=== PATIENT | female | born 1965 | race Caucasian/White ===

== ENCOUNTER 2018-06-19 11:10 | Inpatient (IN) ==
[2018-06-19] MEDS ORDERED: FUROSEMIDE 40 MG/4 ML VIAL IV ONE (12:59)
[2018-06-19 13:00] LABS: Basophils % 0.2 % (0.0-0.8); Eosinophils # 0.2 10*3/uL (0.0-0.87); Eosinophils % 2.1 % (0.00-10.9); Hematocrit 44.9 VOL% (35.7-47.0); Hemoglobin 14.3 GM/DL (12.0-16.0); Immature Granulocytes % 0.3 %; Immature Granulocytes Absolute 0.03 #; Lymphocytes % 20.4 % (21.3-54.2); Mean Corpuscular HGB Conc 31.8 GM/DL (32-36); Mean Corpuscular Hemoglobin 32 PG (27-34); Mean Corpuscular Volume 99.1 FL (87-102); Mean Platelet Volume 11.3 FL (9.6-12.0); Monocytes # 0.9 10*3/uL (0.11-0.8); Monocytes % 9.8 % (1.7-12.7); Neutrophils # 6.4 10*3/uL (1.4-7.4); Neutrophils % 67.2 % (38.7-73.9); Platelet Count 281 T/CUMM (130-400); Red Blood Count 4.53 MC/CUMM (3.8-5.5); Red Cell Distribution Width 17.1 % (9.3-17.3); White Blood Count 9.6 T/CUMM (4-12)
[2018-06-19 13:27] LABS: INR 1.5; PT Patient Result 15.3 SECS
[2018-06-19] MEDS: SODIUM CHLORIDE 0.9% 1,000 ML IV SCH (13:30)
[2018-06-19 13:33] LABS: Albumin 2.6 G/DL (3.4-5.0); Bilirubin,Total 0.9 MG/DL (0.2-1.0); Calcium 8.2 MG/DL (8.5-10.1); Osmolality,Calculated 281.8 MOS/KG (273-304); Potassium 4.7 MMOL/L (3.5-5.1); Total Protein 6.8 G/DL (6.4-8.3)
[2018-06-19] MEDS ORDERED: CHLORHEXIDINE 4% SOLN 118 ML BOTTLE TOP SCH (15:00)
[2018-06-19] MEDS: FUROSEMIDE 40 MG/4 ML VIAL IV SCH (16:25)
[2018-06-19] MEDS: CHLORHEXIDINE 0.12% ORAL RINSE 60 ML BOTTLE SWISH/SPIT SCH (21:24)
[2018-06-19] MEDS: METOPROLOL TARTRATE 25 MG TABLET PO SCH (21:24)
[2018-06-20 02:57] LABS: Basophils % 0.4 % (0.0-0.8); Eosinophils # 0.3 10*3/uL (0.0-0.87); Eosinophils % 2.8 % (0.00-10.9); Hematocrit 43.4 VOL% (35.7-47.0); Hemoglobin 14.4 GM/DL (12.0-16.0); Immature Granulocytes % 0.3 %; Immature Granulocytes Absolute 0.03 #; Lymphocytes # 2.9 10*3/uL (1.4-4.0); Lymphocytes % 27.6 % (21.3-54.2); Mean Corpuscular HGB Conc 33.2 GM/DL (32-36); Mean Corpuscular Hemoglobin 32 PG (27-34); Mean Platelet Volume 11.3 FL (9.6-12.0); Monocytes # 1.1 10*3/uL (0.11-0.8); Monocytes % 9.8 % (1.7-12.7); Neutrophils # 6.3 10*3/uL (1.4-7.4); Neutrophils % 59.1 % (38.7-73.9); Platelet Count 262 T/CUMM (130-400); Red Blood Count 4.57 MC/CUMM (3.8-5.5); Red Cell Distribution Width 16.5 % (9.3-17.3); White Blood Count 10.7 T/CUMM (4-12)
[2018-06-20 03:18] LABS: Albumin 2.8 G/DL (3.4-5.0); Bilirubin,Total 1.2 MG/DL (0.2-1.0); Calcium 8.3 MG/DL (8.5-10.1); Osmolality,Calculated 290.4 MOS/KG (273-304); Total Protein 6.9 G/DL (6.4-8.3)
[2018-06-20] MEDS: ENOXAPARIN 40 MG/0.4 ML SYRINGE SUBCUT SCH (06:00)
[2018-06-20] MEDS: METOPROLOL TARTRATE 25 MG TABLET PO SCH ×2 (08:46→20:51)
[2018-06-20] MEDS: FUROSEMIDE 40 MG/4 ML VIAL IV SCH ×2 (08:46→16:15)
[2018-06-20] MEDS: CHLORHEXIDINE 0.12% ORAL RINSE 60 ML BOTTLE SWISH/SPIT SCH ×2 (08:47→20:51)
[2018-06-20] MEDS: SODIUM CHLORIDE 0.9% 1,000 ML IV SCH (12:08)
[2018-06-20] MEDS: CHLORHEXIDINE 4% SOLN 118 ML BOTTLE TOP SCH ×2 (15:43→20:51)
[2018-06-20] MEDS ORDERED: clonazePAM 0.5 MG TABLET PO ONE (21:00)
[2018-06-21] MEDS: CHLORHEXIDINE 4% SOLN 118 ML BOTTLE TOP SCH ×2 (04:17→09:15)
[2018-06-21] MEDS ORDERED: TISSUE ADHESIVE 1 EACH APPLICATOR TOP ONE (05:01)
[2018-06-21] MEDS ORDERED: VANCOMYCIN 1,000 MG VIAL ONE ×2 (05:02→10:30)
[2018-06-21] MEDS ORDERED: CEFUROXIME INJ 1,500 MG in SYRINGE 1 EACH IV ONE (05:30)
[2018-06-21] MEDS: ENOXAPARIN 40 MG/0.4 ML SYRINGE SUBCUT SCH (05:33)
[2018-06-21] MEDS ORDERED: MIDAZOLAM 10 MG/2 ML VIAL ONE ×2 (05:45)
[2018-06-21] MEDS ORDERED: NITROGLYCERIN DRIP 50 MG/250 ML BOTTLE IV ONE (05:45)
[2018-06-21] MEDS ORDERED: METOPROLOL TARTRATE 5 MG/5 ML VIAL IV ONE (05:45)
[2018-06-21] MEDS ORDERED: ALBUTEROL 2.5 MG/3 ML NEB RESP TX ONE (05:45)
[2018-06-21] MEDS ORDERED: DIAZEPAM 5 MG TABLET PO ONE (06:00)
[2018-06-21] MEDS ORDERED: FAMOTIDINE 20 MG/2 ML VIAL IV ONE (06:00)
[2018-06-21] MEDS ORDERED: SUFentanil 250 MCG/5 ML AMP ONE (06:18)
[2018-06-21] MEDS ORDERED: LIDOCAINE 2% TOP JELLY 20 ML VIAL INTRAURETH ONE (07:18)
[2018-06-21 07:44] LABS: ABG Base Excess 3.6 MMOL/L (-2.5-2.5); ABG HCO3 27.6 MMOL/L (20-26); ABG PCO2 36.9 MM HG (35-48); ABG PH 7.472 (7.35-7.45); ABG TCO2 22.7 MMOL/L (23-27); Glucose Heart Surgery 116 MG/DL (74-106); Hematocrit Heart Surgery 46.7 PERCENT (37-47); Hemoglobin Heart Surgery 15.2 G/DL (12.0-16.0); Ionized Calcium Arterial 1.05 MMOL/L (1.21-1.46); PCO2 Patient Temp Arterial 36.9 MMHG; PH Patient Temp Arterial 7.472; Patient Temperature 37 CELCIUS; Potassium Heart/CVR 3.7 MMOL/L (3.5-5.1); Sodium Heart/CVR 139 MMOL/L (135-145)
[2018-06-21 08:35] LABS: Hemoglobin Heart Surgery 10.3 G/DL (12.0-16.0); PCO2 Patient Temp Venous 28.9 MM HG; PH Patient Temp Venous 7.592; PO2 Patient Temp Venous 46.2 MM HG; Potassium Heart/CVR 4.4 MMOL/L (3.5-5.1); VBG Base Excess 5.5 MEQ/L (0-4); VBG HCO3 27.6 MEQ/L (24-28); VBG Oxygen Saturation 87.6 %; VBG PCO2 31.5 MMHG (41-51); VBG PH 7.561; VBG PO2 53.1 MMHG (17-40)
[2018-06-21 09:01] LABS: Hematocrit Heart Surgery 32.2 PERCENT (37-47); Hemoglobin Heart Surgery 10.4 G/DL (12.0-16.0); PO2 Patient Temp Venous 28.1 MM HG; Potassium Heart/CVR 3.6 MMOL/L (3.5-5.1); VBG Base Excess 5.1 MEQ/L (0-4); VBG HCO3 28.9 MEQ/L (24-28); VBG Oxygen Saturation 89.5 %; VBG PH 7.522
[2018-06-21 09:02] LABS: PH Patient Temp Venous 7.6
[2018-06-21] MEDS ORDERED: ALBUMIN 5% 12.5 GM/250 ML VIAL IV ONE ×2 (09:11→10:20)
[2018-06-21] MEDS ORDERED: SODIUM BICARBONATE 50 MEQ/50 ML SYRINGE IV ONE ×2 (09:11→10:19)
[2018-06-21] MEDS ORDERED: PHENYLEPHRINE DRIP 0 MG/0 ML PREMIX IV ONE (09:12)
[2018-06-21] MEDS ORDERED: POTASSIUM CHLORIDE RIDER 100 ML IV ONE (09:12)
[2018-06-21] MEDS: METOPROLOL TARTRATE 25 MG TABLET PO SCH (09:15)
[2018-06-21] MEDS: FUROSEMIDE 40 MG/4 ML VIAL IV SCH (09:15)
[2018-06-21] MEDS: CHLORHEXIDINE 0.12% ORAL RINSE 60 ML BOTTLE SWISH/SPIT SCH ×2 (09:15→21:58)
[2018-06-21] MEDS ORDERED: AMIODARONE INJ 450 MG in DEXTROSE 5% 241 ML IV SCH (09:30)
[2018-06-21 09:31] LABS: Hematocrit Heart Surgery 29.7 PERCENT (37-47); Hemoglobin Heart Surgery 9.6 G/DL (12.0-16.0); PCO2 Patient Temp Venous 27.4 MM HG; PH Patient Temp Venous 7.575; PO2 Patient Temp Venous 32.1 MM HG; Potassium Heart/CVR 3.9 MMOL/L (3.5-5.1); VBG HCO3 27.7 MEQ/L (24-28); VBG Oxygen Saturation 83.7 %; VBG PCO2 34.9 MMHG (41-51); VBG PH 7.499; VBG PO2 45.5 MMHG (17-40)
[2018-06-21] MEDS ORDERED: THROMBIN TOPICAL (RECOMBINANT) 5,000 UNIT VIAL TOP ONE (10:12)
[2018-06-21 10:17] LABS: ABG Base Excess 3.7 MMOL/L (-2.5-2.5); ABG HCO3 27.7 MMOL/L (20-26); ABG PCO2 33.4 MM HG (35-48); ABG PH 7.508 (7.35-7.45); Glucose Heart Surgery 189 MG/DL (74-106); Hematocrit Heart Surgery 30.8 PERCENT (37-47); Hemoglobin Heart Surgery 9.9 G/DL (12.0-16.0); Ionized Calcium Arterial 1.08 MMOL/L (1.21-1.46); PCO2 Patient Temp Arterial 33.4 MMHG; PH Patient Temp Arterial 7.508; Patient Temperature 37 CELCIUS; Potassium Heart/CVR 3.7 MMOL/L (3.5-5.1); Sodium Heart/CVR 133 MMOL/L (135-145)
[2018-06-21] MEDS ORDERED: ALBUMIN 25% 25 GM/100 ML VIAL IV ONE (10:19)
[2018-06-21] MEDS ORDERED: DEXTROSE 5% KCL 20 MEQ 20 MEQ/1,000 ML BAG IV ONE (10:19)
[2018-06-21] MEDS ORDERED: FUROSEMIDE 20 MG/2 ML VIAL ONE (10:20)
[2018-06-21] MEDS ORDERED: MAGNESIUM SULFATE 10 GM/20 ML VIAL IV ONE (10:20)
[2018-06-21] MEDS ORDERED: methylPREDNISolone SOD SUC 1,000 MG/8 ML VIAL ONE (10:20)
[2018-06-21] MEDS ORDERED: MANNITOL 12.5 GM/50 ML VIAL IV ONE (10:20)
[2018-06-21] MEDS ORDERED: PROTAMINE SULFATE 250 MG/25 ML VIAL IV ONE (10:20)
[2018-06-21] MEDS ORDERED: HEPARIN 10,000 UNIT/10 ML VIAL ONE (10:20)
[2018-06-21] MEDS ORDERED: PHENYLEPHRINE 1 MG/10 ML SYRINGE IV ONE (10:21)
[2018-06-21] MEDS ORDERED: AMIODARONE 450 MG/9 ML VIAL IV ONE (10:41)
[2018-06-21] MEDS ORDERED: CALCIUM CHLORIDE 1,000 MG/10 ML VIAL IV ONE (11:10)
[2018-06-21] MEDS ORDERED: PHENYLEPHRINE DRIP 20 MG/250 ML PREMIX IV ONE (11:10)
[2018-06-21] MEDS ORDERED: SODIUM CHLORIDE 0.9% 100 ML IV ONE (11:11)
[2018-06-21] MEDS ORDERED: VECURONIUM 10 MG VIAL IV ONE (11:11)
[2018-06-21] MEDS ORDERED: ePHEDrine 50 MG/ML AMP ONE (11:11)
[2018-06-21] MEDS ORDERED: MINERAL OIL/PETROLATUM OPH OINT 3.5 GM TUBE ONE (11:11)
[2018-06-21] MEDS ORDERED: SEVOFLURANE 1 UNIT/15 MINUTE INH ONE (11:11)
[2018-06-21] MEDS ORDERED: HEPARIN/NACL 0.9% 2 UNITS/ML 500 ML IV ONE (11:11)
[2018-06-21] MEDS ORDERED: ETOMIDATE 40 MG/20 ML VIAL IV ONE (11:11)
[2018-06-21] MEDS ORDERED: LACTATED RINGERS 1,000 ML IV ONE (11:11)
[2018-06-21] MEDS ORDERED: SODIUM CHLORIDE 0.9% 250 ML IV ONE (11:11)
[2018-06-21] MEDS ORDERED: AMINOCAPROIC ACID 5,000 MG/20 ML VIAL IV ONE (11:11)
[2018-06-21] MEDS ORDERED: SODIUM CHLORIDE 0.9% 1,000 ML IV ONE (11:11)
[2018-06-21] MEDS ORDERED: CHLORHEXIDINE 4% SOLN 118 ML BOTTLE TOP PRN (11:23)
[2018-06-21] MEDS ORDERED: ACETAMINOPHEN 650 MG SUPP RECTAL PRN (11:23)
[2018-06-21] MEDS ORDERED: ONDANSETRON 4 MG/2 ML VIAL IV PRN (11:23)
[2018-06-21] MEDS ORDERED: MAGNESIUM SULF RIDER 2 GM in PREMIX 1 EACH IV PRN (11:23)
[2018-06-21] MEDS ORDERED: CALCIUM CHLORIDE 1,000 MG/10 ML SYRINGE IV PRN (11:23)
[2018-06-21] MEDS ORDERED: DEXTROSE 50% 25 GM/50 ML VIAL IV PRN ×2 (11:23)
[2018-06-21] MEDS ORDERED: INSULIN REGULAR 100 UNIT/ML IV PRN (11:23)
[2018-06-21] MEDS ORDERED: MAGNESIUM SULF RIDER 4 GM in PREMIX 1 EACH IV PRN (11:23)
[2018-06-21] MEDS ORDERED: MIDAZOLAM 2 MG/2 ML VIAL IV PRN (11:23)
[2018-06-21] MEDS ORDERED: INSULIN REGULAR DRIP 100 ML IV SCH (11:23)
[2018-06-21] MEDS: ALBUMIN 5% 12.5 GM in PREMIX 1 EACH IV PRN ×4 (11:30→18:17)
[2018-06-21] MEDS: SODIUM CHLORIDE 0.45% 1,000 ML IV SCH ×2 (11:30→11:53)
[2018-06-21 12:20] LABS: ABG HCO3 27.1 MMOL/L (20-26); ABG PCO2 36.5 MM HG (35-48); ABG TCO2 23.9 MMOL/L (23-27); Glucose Heart Surgery 174 MG/DL (74-106); Hemoglobin Heart Surgery 10.3 G/DL (12.0-16.0); Potassium Heart/CVR 3.5 MMOL/L (3.5-5.1)
[2018-06-21 12:23] LABS: Basophils % 0.2 % (0.0-0.8); Eosinophils % 0.5 % (0.00-10.9); Immature Granulocytes % 0.7 %; Immature Granulocytes Absolute 0.06 #; Lymphocytes # 0.4 10*3/uL (1.4-4.0); Lymphocytes % 4.3 % (21.3-54.2); Mean Corpuscular HGB Conc 33.3 GM/DL (32-36); Mean Corpuscular Hemoglobin 32 PG (27-34); Mean Corpuscular Volume 95.8 FL (87-102); Mean Platelet Volume 11.7 FL (9.6-12.0); Monocytes # 0.6 10*3/uL (0.11-0.8); Monocytes % 6.9 % (1.7-12.7); Neutrophils # 7.1 10*3/uL (1.4-7.4); Neutrophils % 87.4 % (38.7-73.9); Platelet Count 135 T/CUMM (130-400); Red Cell Distribution Width 16.1 % (9.3-17.3); White Blood Count 8.1 T/CUMM (4-12)
[2018-06-21 12:28] LABS: Red Blood Count 3.13 MC/CUMM (3.8-5.5)
[2018-06-21] MEDS: POTASSIUM CHLORIDE RIDER 20 MEQ in PREMIX 1 EACH IV PRN (12:36)
[2018-06-21 12:38] LABS: INR 1.4; PT Patient Result 14.9 SECS; Partial Thromboplastin Time 35.9 SECS (0-40)
[2018-06-21 12:42] LABS: Calcium 8.5 MG/DL (8.5-10.1); Osmolality,Calculated 285.7 MOS/KG (273-304); Potassium 3.5 MMOL/L (3.5-5.1)
[2018-06-21] MEDS: SODIUM CHLORIDE 0.9% 250 ML IV PRN ×5 (12:45→23:35)
[2018-06-21 12:46] LABS: Band Neutrophils 1 % (0-10); Eosinophils 1 % (0-10); Lymphocytes 8 % (20-55); Segmented Neutrophils 85 % (50-85); Total Cells Counted 100
[2018-06-21 12:47] LABS: Anisocytosis 1+; Lactic Acid 1.1 MMOL/L (0.4-2.0)
[2018-06-21 12:48] LABS: Hypochromasia 1+; Platelet Estimate Adequate
[2018-06-21] MEDS: POTASSIUM CHLORIDE RIDER 10 MEQ in PREMIX 1 EACH IV PRN (13:40)
[2018-06-21 13:44] LABS: Apearance,Urine CLEAR (Clear); Bacteria,Urine Occasional /HPF (Few); Bilirubin,Urine Negative (Negative); Blood, Urine Small mg/dL (Negative); Glucose,Urine (UA) Negative (Negative); Hyaline Casts,Urine 5 /LPF (0-3); Ketones,Urine Negative (Negative); Mucus,Urine Occasional /LPF (Occasional); Nitrite,Urine Negative (Negative); Protein,Urine Negative; RBC,Urine 1 /HPF (0-4); Squamous Epithelial Cell,Urine Occasional /HPF (0-10); Urine Color Yellow (Yellow); Urine Specific Gravity 1.013 (1.001-1.035); Urine Urobilinogen < 2.0 EU/DL (0.2-1.0); WBC,Urine 1 /HPF (0-6)
[2018-06-21] MEDS: ALBUTEROL 2.5 MG/3 ML NEB RESP TX SCH (15:24)
[2018-06-21] MEDS: AMIODARONE INJ 450 MG in DEXTROSE 5% 241 ML IV SCH (15:41)
[2018-06-21] MEDS: INSULIN REGULAR 100 UNIT/ML SUBCUT SCH ×2 (16:39→19:48)
[2018-06-21] MEDS: MORPHINE 10 MG/1 ML VIAL IV PRN (17:13)
[2018-06-21] MEDS: CEFUROXIME INJ 1,500 MG in SYRINGE 1 EACH IV SCH (18:18)
[2018-06-21] MEDS ORDERED: METOPROLOL TARTRATE 25 MG TABLET PO SCH (21:00)
[2018-06-22] MEDS: MORPHINE 10 MG/1 ML VIAL IV PRN ×4 (00:03→11:48)
[2018-06-22] MEDS: INSULIN REGULAR 100 UNIT/ML SUBCUT SCH ×6 (00:08→20:34)
[2018-06-22] MEDS: SODIUM CHLORIDE 0.45% 1,000 ML IV SCH ×3 (00:09→22:15)
[2018-06-22 03:18] LABS: Hematocrit 28.6 VOL% (35.7-47.0); Hemoglobin 9.4 GM/DL (12.0-16.0); Immature Granulocytes % 0.2 %; Immature Granulocytes Absolute 0.02 #; Lymphocytes # 0.4 10*3/uL (1.4-4.0); Lymphocytes % 4.4 % (21.3-54.2); Mean Corpuscular HGB Conc 32.9 GM/DL (32-36); Mean Corpuscular Hemoglobin 32 PG (27-34); Mean Corpuscular Volume 96.9 FL (87-102); Mean Platelet Volume 11.8 FL (9.6-12.0); Monocytes # 0.4 10*3/uL (0.11-0.8); Monocytes % 3.7 % (1.7-12.7); Neutrophils # 8.8 10*3/uL (1.4-7.4); Neutrophils % 91.7 % (38.7-73.9); Platelet Count 107 T/CUMM (130-400); Red Blood Count 2.95 MC/CUMM (3.8-5.5); Red Cell Distribution Width 16.7 % (9.3-17.3); White Blood Count 9.6 T/CUMM (4-12)
[2018-06-22 03:46] LABS: Calcium 7.8 MG/DL (8.5-10.1); Osmolality,Calculated 286.5 MOS/KG (273-304); Potassium 3.9 MMOL/L (3.5-5.1)
[2018-06-22] MEDS: POTASSIUM CHLORIDE RIDER 20 MEQ in PREMIX 1 EACH IV PRN (03:56)
[2018-06-22 04:45] LABS: Lymphocytes 3 % (20-55); Segmented Neutrophils 95 % (50-85); Total Cells Counted 100
[2018-06-22 04:46] LABS: Platelet Estimate Decreased
[2018-06-22] MEDS: POTASSIUM CHLORIDE RIDER 10 MEQ in PREMIX 1 EACH IV PRN (05:29)
[2018-06-22] MEDS: ENOXAPARIN 40 MG/0.4 ML SYRINGE SUBCUT SCH (05:29)
[2018-06-22] MEDS: CEFUROXIME INJ 1,500 MG in SYRINGE 1 EACH IV SCH ×2 (06:12→18:05)
[2018-06-22] MEDS: AMIODARONE INJ 450 MG in DEXTROSE 5% 241 ML IV SCH ×2 (08:05→20:36)
[2018-06-22] MEDS: FUROSEMIDE 40 MG TABLET PO SCH (08:44)
[2018-06-22] MEDS: ASPIRIN EC 325 MG TABLET PO SCH (08:44)
[2018-06-22] MEDS: CHLORHEXIDINE 0.12% ORAL RINSE 60 ML BOTTLE SWISH/SPIT SCH ×2 (08:44→21:17)
[2018-06-22] MEDS: PANTOPRAZOLE 40 MG VIAL IV SCH (08:44)
[2018-06-22 09:42] LABS: ABG Base Excess -1.3 MMOL/L (-2.5-2.5); ABG HCO3 23.3 MMOL/L (20-26); ABG Oxygen Saturation 99.4 % (95-100); ABG PCO2 49.3 MM HG (35-48); ABG PH 7.317 (7.35-7.45); ABG TCO2 23.1 MMOL/L (23-27); Glucose Heart Surgery 150 MG/DL (74-106); Hematocrit Heart Surgery 31.1 PERCENT (37-47); Hemoglobin Heart Surgery 10.1 G/DL (12.0-16.0); Potassium Heart/CVR 4.2 MMOL/L (3.5-5.1)
[2018-06-22] MEDS: AMIODARONE 200 MG TABLET PO SCH (11:50)
[2018-06-22] MEDS ORDERED: ALBUMIN 5% 25 GM in PREMIX 1 EACH IV ONE (13:30)
[2018-06-22] MEDS ORDERED: FUROSEMIDE 40 MG/4 ML VIAL ONE (13:31)
[2018-06-22] MEDS ORDERED: FUROSEMIDE 40 MG/4 ML VIAL IV ONE (14:00)
[2018-06-22] MEDS: MORPHINE 4 MG/1 ML VIAL IV PRN ×2 (17:06→22:17)
[2018-06-22] MEDS: ATORVASTATIN 40 MG TABLET PO SCH (21:17)
[2018-06-23] MEDS: INSULIN REGULAR 100 UNIT/ML SUBCUT SCH ×4 (00:27→20:48)
[2018-06-23 03:47] LABS: Basophils % 0.1 % (0.0-0.8); Hematocrit 30.6 VOL% (35.7-47.0); Hemoglobin 9.6 GM/DL (12.0-16.0); Immature Granulocytes % 0.4 %; Immature Granulocytes Absolute 0.07 #; Lymphocytes # 0.7 10*3/uL (1.4-4.0); Lymphocytes % 4.1 % (21.3-54.2); Mean Corpuscular HGB Conc 31.4 GM/DL (32-36); Mean Corpuscular Hemoglobin 31 PG (27-34); Mean Corpuscular Volume 99.7 FL (87-102); Mean Platelet Volume 12.4 FL (9.6-12.0); Monocytes # 1.3 10*3/uL (0.11-0.8); Monocytes % 7.9 % (1.7-12.7); Neutrophils # 14.8 10*3/uL (1.4-7.4); Neutrophils % 87.5 % (38.7-73.9); Platelet Count 121 T/CUMM (130-400); Red Blood Count 3.07 MC/CUMM (3.8-5.5); Red Cell Distribution Width 17.2 % (9.3-17.3)
[2018-06-23 04:01] LABS: Calcium 8.3 MG/DL (8.5-10.1); Osmolality,Calculated 288.3 MOS/KG (273-304); Potassium 4.4 MMOL/L (3.5-5.1)
[2018-06-23 04:45] LABS: Lymphocytes 5 % (20-55); Segmented Neutrophils 88 % (50-85); Total Cells Counted 100
[2018-06-23 04:46] LABS: Hypochromasia Slight; Platelet Estimate Decreased
[2018-06-23] MEDS: SODIUM CHLORIDE 0.45% 1,000 ML IV SCH (05:12)
[2018-06-23] MEDS: ENOXAPARIN 40 MG/0.4 ML SYRINGE SUBCUT SCH (05:49)
[2018-06-23] MEDS: MORPHINE 10 MG/1 ML VIAL IV PRN ×2 (06:51→10:25)
[2018-06-23] MEDS: CHLORHEXIDINE 0.12% ORAL RINSE 60 ML BOTTLE SWISH/SPIT SCH ×2 (09:05→20:49)
[2018-06-23] MEDS: ASPIRIN EC 325 MG TABLET PO SCH (09:05)
[2018-06-23] MEDS: FUROSEMIDE 40 MG TABLET PO SCH (09:05)
[2018-06-23] MEDS: PANTOPRAZOLE 40 MG VIAL IV SCH (09:05)
[2018-06-23] MEDS: AMIODARONE 200 MG TABLET PO SCH (09:05)
[2018-06-23] MEDS ORDERED: clonazePAM 0.5 MG TABLET PO ONE (13:13)
[2018-06-23] MEDS: ALBUTEROL 2.5 MG/3 ML NEB RESP TX SCH (19:15)
[2018-06-23] MEDS: ATORVASTATIN 40 MG TABLET PO SCH (20:46)
[2018-06-23] MEDS: clonazePAM 0.5 MG TABLET PO SCH (20:46)
[2018-06-23] MEDS: FLUoxetine 20 MG CAPSULE PO SCH (20:48)
[2018-06-23] MEDS: CYCLOBENZAPRINE 10 MG TABLET PO SCH (20:48)
[2018-06-23] MEDS: BUDESONIDE/FORMOTEROL 80-4.5 INHALER 6.9 GM INH SCH (20:49)
[2018-06-24] MEDS: ENOXAPARIN 40 MG/0.4 ML SYRINGE SUBCUT SCH (04:49)
[2018-06-24 05:57] LABS: Basophils % 0.1 % (0.0-0.8); Eosinophils % 0.1 % (0.00-10.9); Hematocrit 30.5 VOL% (35.7-47.0); Hemoglobin 9.6 GM/DL (12.0-16.0); Immature Granulocytes % 0.6 %; Lymphocytes # 1.3 10*3/uL (1.4-4.0); Lymphocytes % 7.5 % (21.3-54.2); Mean Corpuscular HGB Conc 31.5 GM/DL (32-36); Mean Corpuscular Hemoglobin 31 PG (27-34); Mean Corpuscular Volume 98.4 FL (87-102); Mean Platelet Volume 13.4 FL (9.6-12.0); Monocytes % 11.2 % (1.7-12.7); Neutrophils # 14.2 10*3/uL (1.4-7.4); Neutrophils % 80.5 % (38.7-73.9); Platelet Count 138 T/CUMM (130-400); Red Cell Distribution Width 17.1 % (9.3-17.3); White Blood Count 17.6 T/CUMM (4-12)
[2018-06-24 06:25] LABS: Calcium 8.2 MG/DL (8.5-10.1); Osmolality,Calculated 280.8 MOS/KG (273-304); Potassium 3.8 MMOL/L (3.5-5.1)
[2018-06-24] MEDS: ALBUTEROL 2.5 MG/3 ML NEB RESP TX SCH ×2 (07:08→19:12)
[2018-06-24] MEDS: INSULIN REGULAR 100 UNIT/ML SUBCUT SCH ×2 (08:03→20:33)
[2018-06-24] MEDS: FUROSEMIDE 40 MG TABLET PO SCH (09:42)
[2018-06-24] MEDS: METOPROLOL TARTRATE 25 MG TABLET PO SCH ×2 (09:43→20:30)
[2018-06-24] MEDS: ASPIRIN EC 325 MG TABLET PO SCH (09:43)
[2018-06-24] MEDS: AMIODARONE 200 MG TABLET PO SCH (09:43)
[2018-06-24] MEDS: CHLORHEXIDINE 0.12% ORAL RINSE 60 ML BOTTLE SWISH/SPIT SCH ×2 (09:49→20:28)
[2018-06-24] MEDS: PANTOPRAZOLE 40 MG VIAL IV SCH (09:54)
[2018-06-24] MEDS: BUDESONIDE/FORMOTEROL 80-4.5 INHALER 6.9 GM INH SCH ×2 (13:59→20:27)
[2018-06-24] MEDS: clonazePAM 0.5 MG TABLET PO SCH (20:29)
[2018-06-24] MEDS: CYCLOBENZAPRINE 10 MG TABLET PO SCH (20:30)
[2018-06-24] MEDS: ATORVASTATIN 40 MG TABLET PO SCH (20:30)
[2018-06-24] MEDS: FLUoxetine 20 MG CAPSULE PO SCH (20:30)
[2018-06-25] MEDS: ENOXAPARIN 40 MG/0.4 ML SYRINGE SUBCUT SCH (05:22)
[2018-06-25] MEDS: ALBUTEROL 2.5 MG/3 ML NEB RESP TX SCH (07:05)
[2018-06-25] MEDS: ASPIRIN EC 325 MG TABLET PO SCH (08:29)
[2018-06-25] MEDS: PANTOPRAZOLE 40 MG VIAL IV SCH (08:29)
[2018-06-25] MEDS: INSULIN REGULAR 100 UNIT/ML SUBCUT SCH (08:29)
[2018-06-25] MEDS: FUROSEMIDE 40 MG TABLET PO SCH (08:30)
[2018-06-25] MEDS: METOPROLOL TARTRATE 25 MG TABLET PO SCH (08:34)
[2018-06-25] MEDS: AMIODARONE 200 MG TABLET PO SCH (08:34)
[2018-06-25] MEDS: CHLORHEXIDINE 0.12% ORAL RINSE 60 ML BOTTLE SWISH/SPIT SCH (08:36)
[2018-06-25] MEDS: BUDESONIDE/FORMOTEROL 80-4.5 INHALER 6.9 GM INH SCH (08:36)
[2018-06-25 11:48] VITALS: BP 107/53
== END 2018-06-25 14:18 | disposition home health service (06) | DRG 220 ==
LOC: N.TELEN 11:47 → N.CVR 06-21 08:04 → N.ICU 06-22 13:03 → N.TELES 06-23 15:44
PROVIDERS: ADMIT Thoracic Surgery (Cardiothoracic Vascular Surgery); ATTEND Thoracic Surgery (Cardiothoracic Vascular Surgery)